=== PATIENT | female | born 1940 | race Caucasian/White ===

== ENCOUNTER 2018-06-07 09:16 | Observation (INO) ==
[2018-06-07] MEDS ORDERED: ASPIRIN PO ONE (10:06)
[2018-06-07 10:09] LABS: BASO# 0.05 X1000 (0.0-0.2); BASO% 0.7 % (0.0-0.8); EOS# 0.25 X1000 (0.0-0.7); EOS% 3.5 % (0.0-10.0); HEMATOCRIT 35.3 % (37.0-47.0); HEMOGLOBIN 11.8 g/dL (12.0-16.0); LYMPH# 2.31 X1000 (1.2-3.4); LYMPH% 32.6 % (20.5-51.1); MCH 29.1 PG (27-31); MCHC 33.4 g/dL (33-37); MCV 86.9 FL (81-99); MONO% 8.5 % (1.7-9.3); MPV 9.4 FL (7.4-10.4); NEUT# 3.87 X1000 (1.4-6.5); NEUT% 54.7 % (42.2-75.2); PLT 230 X1000 (130-400); RBC 4.06 XMIL (4.2-5.4); RDW 12.9 % (11.5-14.5); WBC 7.08 X1000 (4.8-10.8)
--- NOTE | 2018-06-07 10:15 | Diag Imaging Result Doc PS360 ---
EXAM: CHEST-PORTABLE HISTORY: chest pain TECHNIQUE: Portable chest single view COMPARISON: 05/12/2018 FINDINGS: The lungs are well expanded. The heart is not enlarged. The vessels are not distended. There are no infiltrates. No effusion identified. IMPRESSION: Negative exam. Electronically signed by Joe Waterman 06/07/2018 10:12 AM
[2018-06-07 10:23] LABS: ALB/GLOB RATIO 1.6; ALBUMIN 4.3 g/dL (3.5-5.0); CREATININE 1.5 mg/dL (0.5-0.9); POTASSIUM 3.5 mmol/L (3.5-5.1); TOTAL BILIRUBIN 1.29 mg/dL (0.20-1.00)
[2018-06-07 11:07] LABS: CK INDEX 1.8 (0.0-2.5); CK-MB 3.73 ng/mL (0.0-5.0)
[2018-06-07] MEDS ORDERED: APRESOLINE IV ONE (12:02)
[2018-06-07] MEDS ORDERED: PROTONIX IV ONE (13:29)
[2018-06-07] MEDS ORDERED: APRESOLINE IV PRN (13:29)
[2018-06-07] MEDS ORDERED: SODIUM CHLORIDE 0.9% INJ ONE (13:29)
[2018-06-07] MEDS ORDERED: SODIUM CHLORIDE 0.9% INJ SCH (13:30)
[2018-06-07] MEDS ORDERED: ZOFRAN IV PRN (13:31)
[2018-06-07] MEDS ORDERED: TYLENOL PO PRN (13:31)
[2018-06-07 13:33] LABS: C REACTIVE PROT QUANT 1.15 mg/L (0.00-5.00)
[2018-06-07 13:42] LABS: FREE T4 1.34 ng/dL (0.93-1.70); TSH 2.74 uIUmL (0.27-4.20)
[2018-06-07] MEDS ORDERED: NS 1,000 ML IV SCH (13:45)
[2018-06-07 13:47] LABS: CK INDEX 1.7 (0.0-2.5); CK-MB 3.33 ng/mL (0.0-5.0)
--- NOTE | 2018-06-07 14:27 | HISTORY AND PHYSICAL ---
PRIMARY CARE PROVIDER: Josh Vick CHIEF COMPLAINT: Chest pain. HISTORY OF PRESENT ILLNESS: Ms. Sandy Bone is a 77-year-old female with a medical history of 30% blockage of the coronary arteries in 2001 on a left heart cath. She was placed on aspirin at that time but states she has been off of it for 12 years. She also presented with chest pain back in 2016 with a negative cardiac workup at that time. She does have a history of peptic ulcer disease and reflux, also a history of colon tumor that has been removed. Now states that she has had for the last 2 weeks middle chest pain that feels like indigestion, mostly between her breasts, right behind the sternal bone, left arm numbness with chest pain for the last week to the point that over the last 24 hours it has become more of a heavy weakness in both arms, also a heavy feeling in her head. She denies any diaphoresis, lightheadedness, dizziness, shortness of breath. Symptoms are intermittent, sometimes she can go hours in between, it has been averaging about 3 times a day lasting for an hour or more. We will admit her for observation, she will have a stress test in the morning. We will do serial cardiac enzymes and start her on GI prophylaxis. PAST MEDICAL HISTORY: 1. Hypertension. 2. Hypothyroidism. 3. Peptic ulcer disease. 4. GERD. 5. Dyslipidemia. 6. Coronary artery disease. 7. 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 8. Colon resection of the tumor. 9. Cholecystectomy. 10. Right hip total replacement. SOCIAL HISTORY: Denies tobacco, alcohol, or illicit drug use. She did smoke, quit in 1973, and smoked for 10 years, less than 1 pack per day. FAMILY HISTORY: Positive for coronary artery disease, strokes, and diabetes. ALLERGIES: None. HOME MEDICATIONS: Have not been reconciled. It looks like she is possibly on diltiazem, folic acid, Synthroid, omega 3, and Catapres p.r.n. REVIEW OF SYSTEMS: A 14-point review of systems was completed and all are negative except as mentioned above and in HPI. Positives are fullness feeling in her head, left arm primarily with numbness or weakness, chest pain behind the breast bone, otherwise no other complaints. PHYSICAL EXAMINATION: VITAL SIGNS: Temperature 98. Heart rate 62. Respiratory rate 19. Blood pressure 186/76. O2 saturation 96% on room air. GENERAL: Ms. Sandy Bone is a 77-year-old female. She is in no acute distress. She is able to answer questions appropriately. HEENT: Atraumatic and normocephalic. Pupils are equal, round and reactive to light. Extraocular movements were intact. Mucous membranes are dry. NECK: Trachea midline. CARDIOVASCULAR: S1, S2, regular rate and rhythm. No rubs, gallops, or murmurs. No lower extremity edema. No carotid bruits or JVD. +2 dorsalis and radial pulses. PULMONARY: Clear to auscultation with bilateral breath sounds. No accessory muscle use or work of breathing noted. GASTROINTESTINAL: Soft, nontender, nondistended. Positive bowel sounds x4. EXTREMITIES: Moves all extremities equally with full range of motion. NEUROLOGICAL: A and O x3. Follows commands. Sensory is intact. SKIN: Warm, dry, and intact. LABORATORY DATA: White blood cells 7000, hemoglobin 11, hematocrit 35, platelet count 230. Sodium 143, potassium 3.5, BUN 18, creatinine 1.5, glucose 94. Bilirubin 1.29, AST 26, ALT 24. CK 194. Troponin less than 0.01 x2. CRP 1.15. Albumin 4.3. IMAGING: Chest x-ray negative exam. EKG not loaded in the computer, had reported Q waves in leads I, II, and III. ASSESSMENT AND PLAN: 1. Atypical chest pain, being reported as a feeling of indigestion with burning between the breast bone that causes left arm numbness or weakness. Cardiac enzymes x2 are negative. We will repeat third cardiac enzyme set. She had caffeine this morning and unable to get a stress test today, that will be scheduled for in the morning, cardiology is consulted. We will follow-up with an echocardiogram. 2. Hypertension. IV hydralazine p.r.n. and we will add antihypertensives after home medication reconciled. She is a little bradycardic, could consider starting a beta andria, but we will hold off. 3. Hypothyroidism. Once home medications are verified we will continue her Synthroid. 4. Peptic ulcer disease with gastroesophageal reflux disease. Given her symptoms there is a good possibility that she could be having GI symptoms. We will do Carafate and q.12 hours on the Protonix. Dictated by KUSHAL Solares for Chele Milligan MD cc: KUSHAL Solares MD Patient seen and evaluated by me. Presenting with chest pain. She has a family hx of heart disease .Cardiology consulted I agree with the assessment and plan of the FI[employer]DR[employer] OPERATOR. . [facility]
[2018-06-07 15:07] LABS: CALCIUM 8.9 mg/dL (8.8-10.2); CREATININE 1.4 mg/dL (0.5-0.9); POTASSIUM 3.7 mmol/L (3.5-5.1)
--- NOTE | 2018-06-07 15:55 | CARDIOLOGY CONSULTATION ---
DATE: 06/07/2018 CHIEF COMPLAINT ON PRESENTATION: Chest pain. HISTORY OF PRESENT ILLNESS: Ms. Bone is a 77-year-old white female with a history of hypertension, who presented with roughly 2 weeks of chest discomfort that has been off and on, lasting anywhere from 2 to 5 minutes or so. It is nonexertional in nature, located in the mid chest area. The last couple of days she has had some numbness in her left arm. Again, none of this was exertionally related. She has continued to walk for exercise without any symptoms occurring in those time periods. She reports no food triggers. PAST MEDICAL HISTORY: Significant for: 1. Hypertension. 2. Hypothyroidism. 3. Peptic ulcer disease. 4. Hyperlipidemia. 5. Coronary disease. 6. Last myocardial perfusion scan was in 2015 that demonstrated essentially a normal perfusion scan with an ejection fraction of 54%. SOCIAL HISTORY: She has a very distant smoking history where she quit in 1973, smoked for less than 10 years at less than 1 pack per day. She has no alcohol or illicit drug use. FAMILY HISTORY: Significant for coronary disease, CVAs and diabetes. REVIEW OF SYSTEMS: A 10 system review of systems is negative except for those mentioned in HPI. PHYSICAL EXAMINATION: She is afebrile. Her heart rate is 55, blood pressure 185/68.General: She is in no acute distress. HEENT: Oropharynx is moist. Poor dentition. Eye examination shows pink conjunctivae, white sclerae. Neck: Shows no obvious thyromegaly or thyroid tenderness. Cardiovascular: She sounds to be in a regular rate and rhythm. She has no obvious murmurs. She has no S3. She has no lower extremity edema. Chest: Her chest exam is clear to auscultation bilaterally. She has no increased work of breathing. Abdomen: Soft, nontender, nondistended. She has no obvious organomegaly. Skin: Warm and dry throughout, without any rashes. Neurologic: She is moving all extremities well. She has no lateralizing deficits. PERTINENT DATA: Chest x-ray was unremarkable. We do not have an EKG available for this patient at this time. Lab data shows a white count of 7, hematocrit 35.3, platelet count is 230,000. Her sodium is 142, potassium 3.7, BUN 16, creatinine is 1.4 which is stable from check in March. Troponin is negative x multiple checks. ASSESSMENT: Ms. Bone is a 77-year-old female with chest pain that is suggestive of typical and atypical features. PLAN: She has already been ordered a myocardial perfusion scan. She is receiving the resting images. I will obtain the results of her EKG and reviewed that. If her stress testing is unremarkable, then she could likely be discharged later on today from a cardiovascular standpoint. cc: Red Blackmon MD MTDD
[2018-06-07] MEDS ORDERED: NS 500 ML ONE (16:13)
[2018-06-07] MEDS: CARAFATE LIQUID PO SCH ×2 (17:01→21:30)
--- NOTE | 2018-06-07 19:24 | Diag Imaging Result Document ---
PROCEDURE NAME: MYOCARDIAL PERF SCAN, STR/REST - 06/07/2018 REQUESTING DOCTOR: Hospitalist. REASON FOR TEST: Chest pain, abnormal EKG. DESCRIPTION: The patient came in to the nuclear lab and received a rest injection of technetium 99 sestamibi 10.9 mCi. Multiple tomographic views of the cardiac structures were obtained at rest. Subsequently the patient underwent a treadmill exercise protocol and at peak exercise was injected with technetium 99 sestamibi 31.8 mCi. Multiple tomographic views of the cardiac structures were obtained following completion of the exercise protocol. SUMMARY OF THE ELECTROCARDIOGRAPHIC PORTION OF THE STUDY: Resting ECG showed sinus rhythm, rate 65 beats per minute. Resting blood pressure 130/80. Resting ECG showed diffuse ST-segment abnormality with a [address] depression horizontal to downsloping in the lateral inferior leads. The patient walked on the treadmill for 2 minutes and 53 seconds. She did not complete 1 stage of the Luigi protocol. Achieved a maximal heart rate of 134 beats per minute, representing 93% of maximum predicted heart rate for her age. The peak blood pressure was 142/79. The peak exercise ECG showed sinus tachycardia with diffuse ST and T abnormalities downsloping to horizontal up to 2 mm. The patient reported moderate dyspnea and no chest pain. There was weakness. While she was sitting in the wheelchair, she passed out. They gave her IV fluids, and after 20 minutes she stabilized her blood pressure. She recovered consciousness within 15-20 seconds. During the recovery phase, no significant arrhythmia was noted, and during the episode of syncope there was no evidence of any severe bradyarrhythmia, although late in the recovery phase her heart rate slowed down to 41 beats per minute. In summary, the electrocardiographic response to exercise is inconclusive. The patient's exercise capacity is impaired by 20% for her age; however, she did not finish stage 1 of the Luigi protocol, which makes her cardiac risk significantly increased. SUMMARY OF THE MYOCARDIAL PERFUSION PORTION OF THE STUDY: Post-stress tomographic views of the left ventricle showed a relatively focal, mild in severity septal defect. The rest images suggest that this defect is reversible. The polar plots revealed the same. There is the suggestion of a very trivial degree of inducible ischemia in the mid to apical septal portion of the left ventricle. This is an unusual anatomical distribution. It could correspond to a septal branch of the LAD. The possibility of shifting soft tissue attenuation artifact cannot be entirely excluded, although this patient weighs only 132 pounds. There is no significant degree of scar. Gated SPECT shows a preserved ejection fraction of 71%. End-systolic volume is 26 mL. The lung/heart ratio is 0.38. The TID is elevated at 1.29. SUMMARY: This study shows: 1. Abnormal resting electrocardiogram with an inconclusive response to exercise. The patient suffered a syncopal episode after termination of exercise with a persistent bradycardia subsequently, and markedly decreased exercise capacity. 2. Abnormal post-stress myocardial perfusion scan. There is the scintigraphic suggestion of apical septal ischemia, a limited area. Because the TID is elevated, the possibility of more significant subendocardial ischemia cannot be entirely ruled out. 3. Preserved ejection fraction of 70%. Normal end systolic volumes. Clinical correlation is strongly recommended. Given the patient's initial presentation and the syncopal episode post exercise, strong consideration should be given to performing left heart catheterization. The case was discussed with Dr. Red Blackmon. cc: Yordan Springer MD [facility]
[2018-06-07] MEDS: PROTONIX IV SCH (21:30)
[2018-06-08] MEDS: CARAFATE LIQUID PO SCH ×2 (02:01→16:02)
[2018-06-08] MEDS ORDERED: SYNTHROID PO SCH (07:00)
[2018-06-08 07:45] LABS: BASO# 0.03 X1000 (0.0-0.2); BASO% 0.4 % (0.0-0.8); EOS# 0.27 X1000 (0.0-0.7); EOS% 3.4 % (0.0-10.0); HEMOGLOBIN 10.7 g/dL (12.0-16.0); LYMPH# 2.38 X1000 (1.2-3.4); LYMPH% 29.9 % (20.5-51.1); MCH 29.5 PG (27-31); MCHC 33.4 g/dL (33-37); MCV 88.2 FL (81-99); MONO# 0.52 X1000 (0.11-0.59); MONO% 6.5 % (1.7-9.3); MPV 9.6 FL (7.4-10.4); NEUT# 4.76 X1000 (1.4-6.5); NEUT% 59.8 % (42.2-75.2); PLT 224 X1000 (130-400); RBC 3.63 XMIL (4.2-5.4); WBC 7.96 X1000 (4.8-10.8)
--- NOTE | 2018-06-08 07:59 | EKG Report ---
Test Performed on : 06/08/2018 06:56:30 AM Test Reason : fu cp Blood Pressure : / mmHG Vent. Rate : 058 BPM Atrial Rate : 058 BPM P-R Int : 242 ms QRS Dur : 118 ms QT Int : 452 ms P-R-T Axes : 039 -19 270 degrees QTc Int : 443 ms Sinus bradycardia. with 1st degree AV block. Nonspecific intraventricular conduction delay Nonspecific ST and T wave abnormality Abnormal ECG When compared with ECG of 07-JUN-2018 16:00, (Unconfirmed) LA interval has increased Nonspecific T wave abnormality, worse in Inferior leads T wave inversion now evident in Lateral leads Confirmed by Ritesh FISH, Sergio Griffin ([id number]) on 06/09/2018 7:08:06 AM
[2018-06-08 08:11] LABS: HEMOGLOBIN A1C 4.4 % (4.8-6.0)
[2018-06-08 08:18] LABS: CHOLESTEROL 157 mg/dL (0-200); HDL 61 mg/dL (45-65); LDL 71 mg/dL; TRIGLYCERIDES 126 mg/dL (35-135); VLDL 25 mg/dL
[2018-06-08] MEDS ORDERED: ASPIRIN PO SCH (09:00)
[2018-06-08] MEDS: PROTONIX IV SCH (09:05)
--- NOTE | 2018-06-08 09:27 | EKG Report ---
Test Performed on : 06/07/2018 4:00:17 PM Test Reason : NO EKG ORDER FOR MUSE Blood Pressure : / mmHG Vent. Rate : 052 BPM Atrial Rate : 052 BPM P-R Int : 208 ms QRS Dur : 128 ms QT Int : 524 ms P-R-T Axes : 047 -23 022 degrees QTc Int : 487 ms Sinus bradycardia. Left ventricular hypertrophy with QRS widening Abnormal ECG When compared with ECG of 07-JUN-2018 09:22, (Unconfirmed) MO interval has decreased Minimal criteria for Septal infarct are no longer present T wave inversion no longer evident in Lateral leads QT has lengthened Confirmed by Ritesh FISH, Sergio Griffin ([id number]) on 06/09/2018 7:07:22 AM
[2018-06-08] MEDS ORDERED: NORVASC PO SCH (11:15)
--- NOTE | 2018-06-08 11:38 | CARDIOLOGY PROGRESS NOTE ---
DATE: 06/08/2018 SUBJECTIVE: Ms. Bone did not have any episodes of chest pain overnight. PHYSICAL EXAMINATION: Vital Signs: She is afebrile, heart rate is 68, her blood pressure is 150/64. She has had multiple systolics anywhere from the 170s to the low 200s. General: She is in no acute distress. Cardiovascular: She sounds to be in a regular rate and rhythm. She has no murmurs. She has no S3. No lower extremity edema. Chest: Examination is clear bilaterally. She has no increased work of breathing. Abdomen: Soft, nontender. PERTINENT DATA: White count 7.9, hematocrit 32, platelet count 224,000. Her LDL is 71, HDL 61. Negative cardiac enzymes. She did have a stress test yesterday that showed a possible small focal defect in the septal wall, possible transient ischemic dilatation, and an ejection fraction of 70%. ASSESSMENT: Ms. Benson is a 77-year-old female who presented with chest pain yesterday. PLAN: Her stress test shows a small defect. She did have an episode of near syncope occurring after the episode that was felt to be vagal. Her EKG is not normal. She has a normal ejection fraction. Considering the above issues, we will proceed with cardiac catheterization to delineate her coronary anatomy. Risks, benefits, and alternatives were explained to the patient. She agrees to proceed. cc: Red Blackmon MD
[2018-06-08 11:52] LABS: INR 0.88; PROTIME 12.6 Seconds (11.0-16.0)
[2018-06-08 11:53] LABS: PTT 27.5 Seconds (22.3-41.8)
[2018-06-08] MEDS ORDERED: NITROGLYCERIN ONE (14:06)
[2018-06-08] MEDS ORDERED: CLAVE TWINSITE 32 IN 11959 ONE (14:36)
[2018-06-08] MEDS ORDERED: VERSED ONE (14:36)
[2018-06-08] MEDS ORDERED: NS 1,000 ML ONE (14:36)
[2018-06-08] MEDS ORDERED: ANESTHESIA PB SET 88 IN 5742 ONE (14:36)
[2018-06-08] MEDS ORDERED: APRESOLINE ONE (14:54)
--- NOTE | 2018-06-08 15:02 | PROGRESS NOTE ---
DATE: 06/08/2018 SUBJECTIVE: The patient resting in bed. Not in any obvious distress. OBJECTIVE: Vital Signs: 97.4, pulse 68, respiratory rate is 20, blood pressure 150/64. HEENT: Atraumatic, normocephalic. Cardiovascular system: S1, S2. Respiratory system : Has evidence of good air entry bilaterally. Abdomen: Soft, nontender. No masses felt. Central nervous system: No obvious focal deficit. LABORATORY DATA: WBC is 7.96, hematocrit is 32, with a platelet count of 224. Lipid panel: Triglycerides 126, LDL 71, VLDL 25. ASSESSMENT AND PLAN: 1. Chest pain. Note abnormal cardiac stress test. Follow up cardiac workup as recommended by Cardiology. 2. Hypertension. Optimize blood pressure control. 3. Hypothyroidism. Continue levothyroxine. 4. Peptic ulcer disease. Continue proton pump inhibitor. cc: Chele Milligan MD MTDD
--- NOTE | 2018-06-08 15:42 | CARDIAC CATH REPORT ---
PROCEDURE NAME: - INDICATION FOR THE PROCEDURE: Patient with chest pain, small defect notated in the anterior septal wall on nuclear scan, episode of syncope. PROCEDURES PERFORMED: 1. Left heart catheterization. 2. Selective coronary angiography. PROCEDURE IN DETAIL: Ms. Bone was brought to the catheterization laboratory in a fasting state. Informed consent was obtained. Prepped in usual fashion. She was anesthetized over the right radial artery after Joey's test proved adequate. A 5-[place] sheath was placed via true Seldinger technique. A radial cocktail was administered. Catheters were introduced. Hemodynamic measurements made in the ascending thoracic aorta. Coronary angiography was performed in multiple views using JL3.5 and JR4 diagnostic catheters. Left heart catheterization was performed using the JR4. At the conclusion of the procedure all sheaths and catheters were removed. TR band was left inflated at 13 mL of air. Good capillary refill. Good hemostasis. CONTRAST: 70 mL of Visipaque. BLOOD LOSS: 10 mL. COMPLICATIONS: No apparent complications. FINDINGS: 1. The left main originates from the left coronary cusp. It is normal. 2. Left anterior descending and circumflex vessels originate from the left main. There do not appear to be any flow-limiting lesions. They appear essentially nonobstructive and normal. There were very tortuous. 3. Right coronary originates from the right coronary cusp. It is nondominant. It appears normal throughout its course. 4. Aortic blood pressure 154/63. Left ventricle pressure 155/2 with an LVEDP of 3. ASSESSMENT: Ms. Bone is a 77-year-old female who presented with exertional chest pain, syncope, and a defect on her nuclear scan. PLAN: She does not appear to have any significant flow-limiting lesions. She essentially has angiographically normal coronaries. We will continue with aggressive primary risk factor modification including antihypertensive treatment. cc: Red Blackmon MD
[2018-06-08 16:00] VITALS: BP 142/61
[2018-06-08] MEDS ORDERED: ASPIRIN EC PO SCH (16:40)
[2018-06-08 17:16] LABS: URINE SOURCE CLEAN CATCH
[2018-06-08 17:22] LABS: BILIRUBIN URINE NEGATIVE (NEGATIVE); BLOOD URINE NEGATIVE (NEGATIVE); COLOR STRAW; GLUCOSE URINE NEGATIVE (NEGATIVE); KETONE URINE NEGATIVE (NEGATIVE); LEUKOCYTES URINE NEGATIVE (NEGATIVE); NITRITE URINE NEGATIVE (NEGATIVE); PH URINE 6.5; PROTEIN URINE TRACE mg/dL (NEGATIVE); SP GRAVITY URINE 1.018; TURBIDITY URINE CLEAR (CLEAR); UR EPITHELIAL CELLS <10 /HPF (<10); URINE BACTERIA NEGATIVE /HPF; URINE RBC <10 /HPF (<10); URINE WBC <10 /HPF (<10); UROBILINOGEN URINE NORMAL (NORMAL)
[2018-06-08 17:32] LABS: UR CREAT RANDOM 33.1 mg/dL (11-20)
--- NOTE | 2018-06-09 14:23 | ECHO REPORT ---
ORDER DATE: 06/07/2018 ECHOCARDIOGRAPHY: INDICATION: Chest pain, hypertension. FINDINGS: 1. Right atrium appears normal in size. 2. Mild tricuspid regurgitation. RV systolic pressure of 36. 3. Normal RV size and systolic function. 4. No significant pulmonic insufficiency. 5. Normal left atrial size at 2.8 cm. 6. No mitral prolapse. Mild mitral regurgitation. 7. Normal LV size. End-diastolic dimension of 4.7. Normal wall thicknesses with a posterior and interventricular septal wall thickness 1.1 cm each. Normal LV systolic function. Estimated EF of 65 to 70 percent with normal wall motion. 8. Aortic valve opens well. It is trileaflet. No evidence of stenosis or insufficiency. 9. Aorta appears normal in visualized segments. 10. No pericardial effusion seen. cc: Red Blackmon MD
--- NOTE | 2018-06-10 22:33 | DISCHARGE SUMMARY ---
ADMISSION DATE: 06/07/2018 DISCHARGE DATE: 06/08/2018 PRINCIPAL DIAGNOSIS: Atypical chest pain. SECONDARY DIAGNOSES: Hypertension, hypothyroidism, peptic ulcer disease. DISCHARGE MEDICATIONS: 1. Tylenol 650 mg q.6 hours p.r.n. 2. Norvasc 5 mg p.o. daily. 3. Aspirin 81 mg p.o. daily. 4. Levothyroxine 25 mcg p.o. daily. 5. Folic acid 1 mg p.o. daily. 6. Byers-3 fatty acid 2 pills daily. 7. Calcium 600/vitamin-D 1 daily. 8. Diltiazem 300 mg p.o. daily. 9. Potassium chloride 10 mEq p.o. daily. CONSULTATIONS DONE DURING THIS HOSPITAL STAY: Dr. Red Blackmon, Cardiology. HOSPITAL COURSE: Ms. Sandy Bone is a 77-year-old female with a history of coronary artery disease. Presents to the hospital because of chest pain. Acute [place] was ruled out with negative cardiac enzymes. The patient was seen by the cardiology team. Had noninvasive cardiac testing done, which was reported as an abnormal resting electrocardiogram, with inconclusive response to exercise. It was noted the patient suffered a syncopal episode after termination of exercise, with persistent bradycardia, and subsequently had markedly decreased exercise capacity. There was also notation of abnormal post stress myocardial perfusion scan. Ejection fraction was about 20%. The patient subsequently had a cardiac cath done, which was reported as the patient not having any significant flow-limiting lesions. The patient was subsequently discharged to home. She will need to follow up with her primary care physician, Dr. Nicanor Moreno. cc: Chele Milligan MD
== END 2018-06-08 19:45 | disposition home or self-care (01) ==
LOC: ED 09:16 → 3N 09:16 → 3S 06-08 15:25
PROVIDERS: ATTEND Internal Medicine
CPT/HCPCS: 71010; 71045; 78452; 80048; 80053; 80061; 81001; 82550; 82553; 82570; 82607; 82746; 83036; 83735; 84300; 84439; 84443; 84484; 85025; 85610; 85730; 86140; 93005; 93010; 93017; 93306; 93458; 96374; 99285; A9270; A9500; C9113; J0360; J2250; J7030; J7040; Q9967; S0164